=== PATIENT | female | born 1990 | race Hispanic/Latino ===

== ENCOUNTER 2017-11-07 07:36 | Inpatient (IN) | payer BC, MEDICAID ==
[~2017-11-07] VITALS: Ht 152.4 cm; Wt 97.5 kg
[2017-11-07] MEDS ORDERED: LACTATED RINGERS 1000ML 1,000 ML IV PRN (08:08)
[2017-11-07 08:09] LABS: APPEARANCE,URINE Clear (CLEAR); BILIRUBIN,URINE Negative (NEGATIVE); COLOR,URINE Dark Yellow (YELLOW); GLUCOSE, URINE (UA) Negative (NEGATIVE); KETONES,URINE Trace mg/dL (NEGATIVE); LEUKOCYTE ESTERASE ,URINE Negative (NEGATIVE); NITRATE,URINE Negative (NEGATIVE); OCCULT BLOOD,URINE Negative (NEGATIVE); PH,URINE 5.5 (5.0-8.0); PROTEIN,URINE Trace (NEGATIVE)
[2017-11-07] MEDS ORDERED: AMPICILLIN 2GM+NS 100ML 100 ML IV SCH (08:15)
[2017-11-07] MEDS ORDERED: AMPICILLIN 1GM+NS 50ML 50 ML IV SCH (08:15)
[2017-11-07 08:16] LABS: BACTERIA,URINE Rare /HPF (None Seen); RBC,URINE 0-1 /HPF (0-1); SQUAMOUS EPITHELIAL CELL,UR Rare /LPF (0-2); WBC,URINE 0-1 /HPF (0-1)
[2017-11-07 08:39] LABS: HEMATOCRIT 38.4 % (36-48); MEAN CORPUSCULAR HEMOGLOBIN 28.1 pg (27.0-33.0); MEAN CORPUSCULAR HGB CONC 33.8 g/dL (32.0-36.0); MEAN CORPUSCULAR VOLUME 83.2 fL (79-99); PLATELET COUNT (AUTO) 231 K/uL (130-400); RED BLOOD CELL COUNT(AUTO) 4.61 MIL/uL (4.00-5.50); RED CELL DISTRIBUTION WIDTH 14.3 % (11.0-15.5); WHITE BLOOD COUNT (AUTO) 12.8 K/uL (4.8-10.8)
[2017-11-07] MEDS ORDERED: LACTATED RINGERS 500 ML 500 ML IV PRN (08:45)
[2017-11-07] MEDS ORDERED: NALOXONE HCL 0.4 MG/1 ML ML IV PRN (08:45)
[2017-11-07] MEDS ORDERED: OXYTOCIN 10 USP UNITS/ML 20 UNIT in LACTATED RINGERS 1000ML 1,000 ML IV SCH (08:45)
[2017-11-07] MEDS ORDERED: PROMETHAZINE HCL 25 MG/ML 1ML AMPULE IM PRN (08:45)
[2017-11-07] MEDS ORDERED: MEPERIDINE-PF 50 MG/ML SYG IVP PRN (08:45)
[2017-11-07] MEDS ORDERED: EPHEDRINE SULFATE 50 MG/ML AMPULE IVP PRN (08:45)
[2017-11-07] MEDS ORDERED: PROMETHAZINE HCL 25 MG/ML 1ML AMPULE IM ONE (09:04)
[2017-11-07] MEDS ORDERED: MEPERIDINE-PF 50 MG/ML SYG ONE (09:04)
[2017-11-07] MEDS ORDERED: OXYTOCIN 10 USP UNITS/ML ONE ×2 (09:05→09:31)
[2017-11-07] MEDS ORDERED: OXYTOCIN-LR 20 UNITS/1000 ML 1,000 ML IV SCH (10:15)
[2017-11-07] MEDS ORDERED: MEASLES/MUMPS/RUBELLA VACCINE, LIVE 0.5 ML/VIAL SQ PRN (10:15)
[2017-11-07] MEDS ORDERED: ACETAMINOPHEN 325 MG TAB PO PRN (10:15)
[2017-11-07] MEDS ORDERED: BENZOCAINE/LANOLIN/ALOE VERA 60 ML AEROSOL TP PRN (10:15)
[2017-11-07] MEDS ORDERED: LANOLIN 30GM OINTMENT TP PRN (10:15)
[2017-11-07] MEDS ORDERED: ACETAMINOPHEN-CODEINE 300/30MG TAB PO PRN (10:15)
[2017-11-07] MEDS ORDERED: DIPH,PERTUSS(ACELL),TET VAC/PF 0.5 ML VIAL IM PRN (10:15)
[2017-11-07] MEDS ORDERED: WITCH HAZEL 1 PAD TP PRN (10:15)
[2017-11-07 11:44] VITALS: BP 129/86
[2017-11-07 15:24] VITALS: BP 128/79
[2017-11-07] MEDS ORDERED: PNV1TABL17 PO (15:34)
[2017-11-07 19:25] VITALS: BP 122/70
[2017-11-07] MEDS: IBUPROFEN 800 MG TAB PO PRN (21:28)
[2017-11-07] MEDS: DOCUSATE SODIUM 100 MG CAP PO SCH (21:28)
[2017-11-07 23:06] VITALS: BP 119/73
[2017-11-08] VITALS (7 sets, daily range): BP systolic 106–127; BP diastolic 59–74
[2017-11-08 06:46] LABS: HEMATOCRIT 33.4 % (36-48); MEAN CORPUSCULAR HEMOGLOBIN 29.1 pg (27.0-33.0); MEAN CORPUSCULAR HGB CONC 34.1 g/dL (32.0-36.0); MEAN CORPUSCULAR VOLUME 85.2 fL (79-99); PLATELET COUNT (AUTO) 205 K/uL (130-400); RED BLOOD CELL COUNT(AUTO) 3.91 MIL/uL (4.00-5.50); RED CELL DISTRIBUTION WIDTH 14.9 % (11.0-15.5); WHITE BLOOD COUNT (AUTO) 13.7 K/uL (4.8-10.8)
[2017-11-08] MEDS: DOCUSATE SODIUM 100 MG CAP PO SCH ×2 (09:01→21:10)
[2017-11-08 12:18] LABS: HEPATITIS Bs ANTIGEN SCREEN P Negative (Negative)
[2017-11-08] MEDS: IBUPROFEN 800 MG TAB PO PRN ×2 (12:20→23:28)
[2017-11-09 03:53] VITALS: BP 125/72
[2017-11-09 07:39] VITALS: BP 128/74
[2017-11-09] MEDS: DOCUSATE SODIUM 100 MG CAP PO SCH (09:16)
[2017-11-09] MEDS: IBUPROFEN 800 MG TAB PO PRN (09:17)
[2017-11-09] MEDS ORDERED: DOCU-116 PO (11:30)
[2017-11-09] MEDS ORDERED: IBUP-2077 PO (11:31)
[2017-11-09 11:39] VITALS: BP 118/76
[2017-11-09 15:56] VITALS: BP 127/80
== END 2017-11-09 16:05 | disposition home or self-care (01) | DRG 775 ==
LOC: LDH 07:36 → OBSVTOIN 07:36 → WSH 12:29
PROVIDERS: ADMIT Obstetrics & Gynecology; ATTEND Obstetrics & Gynecology
PROC: 10E0XZZ Delivery of Products of Conception, External Approach (ICD-10-PCS; principal; 2017-11-07)
PROC: 10907ZC Drainage of Amniotic Fluid, Therapeutic from Products of Conception, Via Natural or Artificial Opening (ICD-10-PCS; 2017-11-07)
PROC: 3E0234Z Introduction of Serum, Toxoid and Vaccine into Muscle, Percutaneous Approach (ICD-10-PCS; 2017-11-07)
PROC: 3E0134Z Introduction of Serum, Toxoid and Vaccine into Subcutaneous Tissue, Percutaneous Approach (ICD-10-PCS; 2017-11-07)
DX: O99.824 Streptococcus B carrier state complicating childbirth (principal); Z23 Encounter for immunization; Z37.0 Single live birth; Z3A.38 38 weeks gestation of pregnancy
CPT/HCPCS: 36415; 81001; 85027; 86592; 86850; 86900; 86901; 87340; A4351; J0290; J2175; J2550; J2590; J7120

== ENCOUNTER → 2018-07-11 | Outpatient (CLI) | payer BC ==
[~2018-07-11] MED LIST: DOCU-116 PO; IBUP-2077 PO; IOHEXOL-350 50ML VIAL IV ONE; PNV1TABL17 PO
== END | disposition home or self-care (01) ==
LOC: RAH 14:21
PROVIDERS: ATTEND Nurse Practitioner Family
DX: R22.1 Localized swelling, mass and lump, neck (principal)
CPT/HCPCS: 70492; Q9967

== ENCOUNTER 2025-03-05 08:15 | Emergency (ER) | payer BC, MEDICAID ==
[~2025-03-05] VITALS: Ht 152.4 cm; Wt 95.3 kg
[~2025-03-05 08:15] MED LIST changes: -IOHEXOL-350 50ML VIAL IV ONE
[2025-03-05 08:16] VITALS: TEMP 98.3
--- NOTE | 2025-03-05 08:30 | ERN ---
General Chief Complaint: Nausea,Vomiting,Diarrhea Stated Complaint: NAUSEA AND VOMITING Time Seen by MD: 08:16 Source: patient History of Present Illness Initial Comments Patient is a 35-year-old female coming in to be evaluated for dizziness and facial pain. She states that these symptoms began on Sunday she states that she had some facial discomfort which progressed and nauseousness and vomiting. She states that she has been having these symptoms on and off since Sunday no fever no chills. Allergies: Coded Allergies: No Known Drug Allergies (Unverified Allergy, Unknown, 11/07/17) Home Meds Reported Medications Ibuprofen (Ibuprofen 800 mg Tab) 800 Mg Tab, 800 MG PO Q8H PRN for PAIN, #60 TAB 0 Refills 11/09/17 Docusate Sodium (Colace) 100 Mg Capsule, 100 MG PO BID PRN for CONSTIPATION, #60 CAP 0 Refills 11/09/17 Pnv Cmb#21/Iron/Folic Acid ( Complete [place]) 1 Each Tablet, 1 EACH PO DAILY, TAB 11/07/17 Past Medical History Past Medical History: Other Medical History Other: THYROID PROBLEMS Past Surgical History: Cholecystectomy ROS Dictation CONSTITUTIONAL: No chills, no fever, no weakness, no diaphoresis, no malaise. HEAD/FACE: No signs of trauma. EENT: No eye pain, no blurred vision, no tearing, no double vision, no ear pain, no ear discharge, no nose pain, no nasal congestion, no throat pain, no throat swelling, no mouth pain. RESPIRATORY: No cough, no orthopnea, no SOB, no stridor, no wheezing. CARDIOVASCULAR: No chest pain, no edema, no palpitations, no syncope. GASTROINTESTINAL/ABDOMINAL: No abdominal pain, no constipation, no diarrhea, no nausea, no vomiting. GENITOURINARY: No abnormal discharge, no dysuria, no frequent urination, no hematuria. No complaints of pain in the genitals. MUSCULOSKELETAL: No back pain, no gout, no joint pain, no joint swelling, no muscle pain, no muscle stiffness, no neck pain. INTEGUMENTARY: No change in color, no change in hair/nails, no dryness, no lesion, no lumps, no rash. NEUROLOGICAL/PSYCH: No anxiety, not depressed, no emotional problem, no headache, no numbness, no pre-existing deficit, no history of seizures, no tremors, no weakness. HEMATOLOGIC/LYMPHATIC: Not anemic, no history of blood clots, no apparent bleeding, no bruising, glands not swollen. All Systems Negative, Except as Noted. Physical Exam Physical Exam Dictation VITAL SIGNS: Reviewed. GENERAL APPEARANCE: Alert, oriented x3, no acute distress, obese. HEAD AND FACE: Non-traumatic. Facial tenderness on palpation, frontal sinus pressure EYES: PERRL, pink conjunctivas, eyelid no trauma, anterior chamber clear. EARS: Pinnas intact and no signs of trauma or erythema. Ear canals clear and no discharge. TMs no erythema. NOSE: No discharge, no bleeding. Nasal turbinate swelling bilateral OROPHARYNX: Mouth normal, teeth no caries, tongue pink. Pharynx clear, no erythema. Tonsils no exudates, no abscesses noted. Mucous membrane moist. NECK: Supple, non-tender, no thyromegaly, no masses, no JVD, no bruits. BREAST: Deferred. CHEST: No tenderness, no crepitus, no paradoxical movement, no retractions. LUNGS: Clear, well-ventilated, symmetric, no rales, no wheezing, no rhonchi, no stridor, good breath sounds bilaterally. HEART: Regular rate, regular rhythm, no murmur, no gallops. VASCULAR: No peripheral edema. ABDOMEN: Soft, positive bowel sounds, nondistended, no guarding, nontender, no rebound, no masses no hepatomegaly, no splenomegaly, no Cruz's sign, no hernias. RECTAL: Deferred. GENITAL: Deferred. NEUROLOGICAL: Normal speech, gross motor function intact, gross sensory function intact. MUSCULOSKELETAL: Neck nontender, full range of motion, back nontender, full range of motion. EXTREMITIES: Nontender, full range of motion. SKIN: Color pink, dry, no turgor, no rash, no lacerations, no abrasions, no contusions. LYMPHATICS: Deferred. Results Laboratory and Microbiology Lab and Micro Result Laboratory Tests Test 03/05/25 08:26 White Blood Count 8.7 K/uL (4.8-10.8) Red Blood Count 5.01 MIL/uL (4.00-5.50) Hemoglobin 14.7 g/dL (12.0-16.0) Hematocrit 44.1 % (36-48) Mean Corpuscular Volume 88.0 fL (79-99) Mean Corpuscular Hemoglobin 29.3 pg (27.0-33.0) Mean Corpuscular Hemoglobin Concent 33.3 g/dL (32.0-36.0) Red Cell Distribution Width 12.1 % (11.0-15.5) Platelet Count 300 K/uL (130-400) Mean Platelet Volume 8.7 fL (7.5-10.5) Immature Granulocyte % (Auto) 0.6 % (0-1) Neutrophils (%) (Auto) 78.6 % (40.0-77.0) H Lymphocytes (%) (Auto) 15.8 % (21.0-51.0) L Monocytes (%) (Auto) 4.1 % (3.0-13.0) Eosinophils (%) (Auto) 0.6 % (0.0-8.0) Basophils (%) (Auto) 0.3 % (0.0-5.0) Neutrophils # (Auto) 6.9 K/uL (1.8-7.7) Lymphocytes # (Auto) 1.4 K/uL (1.0-4.8) Monocytes # (Auto) 0.4 K/uL (0.1-1.0) Eosinophils # (Auto) 0.05 K/uL (0.00-0.70) Basophils # (Auto) 0.03 K/uL (0.00-0.20) Absolute Immature Granulocyte (auto 0.05 K/uL (0-1) Nucleated Red Blood Cells 0.0 % (0.0-0.19) Urine Color YELLOW (YELLOW) Urine Appearance CLEAR (CLEAR) Urine pH 6.0 (5.0-8.0) Urine Specific [place] 1.030 (1.001-1.031) Urine Protein TRACE mg/dL (NEGATIVE) H Urine Glucose (UA) NEGATIVE mg/dL (NEGATIVE) Urine Ketones NEGATIVE mg/dL (NEGATIVE) Urine Occult Blood NEGATIVE (NEGATIVE) Urine Nitrate NEGATIVE (NEGATIVE) Urine Bilirubin NEGATIVE mg/dL (NEGATIVE) Urine Urobilinogen 0.2 mg/dL (0.2-1.0) Urine Leukocyte Esterase NEGATIVE [place]/uL Urine RBC 0-1 /HPF (0-1) Urine WBC 0-1 /HPF (0-1) Urine Squamous Epithelial Cells Rare /HPF (0-2) Urine Bacteria None Seen /HPF (None Seen) Sodium Level 143 mmol/L (136-145) Potassium Level 3.7 mmol/L (3.5-5.1) Chloride Level 104 mmol/L (101-111) Carbon Dioxide Level 29 mmol/L (21-32) Blood Urea Nitrogen 10 mg/dL (7-18) Creatinine 0.9 mg/dL (0.5-1.0) Glomerular Filtration Rate Calc 84 mL/min (>90) Random Glucose 126 mg/dL (70-105) H Total Calcium 9.3 mg/dL (8.5-10.1) Total Bilirubin 0.6 mg/dL (0.2-1.0) Aspartate Amino Transf (AST/SGOT) 63 U/L (10-37) H Alanine Aminotransferase (ALT/SGPT) 132 U/L (12-78) H Alkaline Phosphatase 97 U/L (50-136) Total Creatine Kinase 62 U/L (21-232) Troponin I High Sensitivity 4 ng/L (4-50) Total Protein 8.2 g/dL (6.0-8.3) Albumin 3.9 g/dL (3.5-5.0) Lipase 28 U/L (16-77) Labs Reviewed?: Yes EKG/XRAY/US/CT/MRI EKG Comment 03/05/2025 time 8:29 a.m. Ventricular rate 62 Sinus rhythm [place] [address] wave elevation or depression MDM MDM: Differential diagnosis: Frontal sinusitis, dehydration, vertigo, history of hypothyroidism Rationale: Tests considered and ordered secondary to shared decision making include: Previous outside records reviewed: Old ER visits. Risk of complication and/or morbidity or mortality of patient management: None Medications-Per medication reconciliation Need for hospitalization: Patient does not meet criteria for hospitalization. Patient is a 35-year-old female coming in to be evaluated for dizziness. Along with the dizziness patient has been complaining of facial tenderness on palpation nasal congestion as well. On physical exam bilateral nasal turbinate swelling with some discharge and frontal sinus pressure on palpation. Patient was hydrated with IV fluids states he feels much better. Based on the physical findings patient will be discharged with frontal sinusitis as well as dehydration. Patient does has a history of hypothyroidism I did advised her appropriate follow up with PCP for ongoing evaluation and monitoring of thyroid levels. ED Course Orders Procedure Category Date Status Time Cbc With Differential LAB 03/05/25 Complete 08:17 Comprehensive LAB 03/05/25 Complete Metabolic Panel 08:17 Troponin I High LAB 03/05/25 Complete Sensitivity 08:17 Urinalysis Profile LAB 03/05/25 Complete 08:17 12 Lead Ekg Tracing- EKG 03/05/25 Complete Technical 08:17 Lactated Ringers PHA 03/05/25 Complete 1000ml (Lactated 08:30 Ondansetron 4mg Inj PHA 03/05/25 Complete (Zofran 4mg Inj) 08:30 Pantoprazole 40mg Inj PHA 03/05/25 Complete (Protonix 40mg Inj 08:30 Creatine Kinase, Total LAB 03/05/25 Complete 08:17 Lipase LAB 03/05/25 Complete 08:17 Drug Screen Urine LAB 03/05/25 Logged 08:52 Current Medications Medications (Trade) Dose Ordered Sig/Jaimie Route PRN Reason Start Time Stop Time Status Last Admin Dose Admin Lactated Ringer's 1,000 ml @ 0 mls/hr ONCE ONCE IV 03/05/25 08:30 03/05/25 08:31 DC 03/05/25 08:34 Ondansetron HCl (zoFRAN 4MG INJ) 4 mg ONCE ONCE IVP 03/05/25 08:30 03/05/25 08:31 DC 03/05/25 08:34 Pantoprazole Sodium (PROTonix 40MG INJ) 40 mg ONCE ONCE IVP 03/05/25 08:30 03/05/25 08:31 DC 03/05/25 08:33 Vital Signs Date Time Temp Pulse Resp B/P (MAP) Pulse Ox O2 Delivery O2 Flow Rate FiO2 03/05/25 08:16 98.2 75 16 161/97 97 Room Air 0 DX & DISP Disposition: Discharge Departure Impression: Primary Impression: Frontal sinusitis Additional Impressions: Dehydration, History of hypothyroidism Condition: Stable Scripts Loratadine (Loratadine) 10 Mg Tablet 1 TAB PO DAILY for allergy symptoms for 30 Days, #30 TAB 0 Refills Prov: VALERIE MENDEZ MD 03/05/25 Fluticasone Propionate (Flonase Nasal [place]) 50 Mcg/Actuation [place] 2 SPRAY NS DAILY, #16 GM 0 Refills Prov: VALERIE MENDEZ MD 03/05/25 Amoxicillin/Potassium Clav (Amox Tr-K Clv 875-125 mg Tab) 875 Mg-125 Mg Tablet 1 TAB PO BID for 10 Days, #20 TAB 0 Refills Prov: VALERIE MENDEZ MD 03/05/25 Additional Instructions: FOLLOW-UP WITH PRIMARY CARE PROVIDER IN 1 TO 2 DAYS. TAKE MEDICATIONS DIRECTED HERE IN THE EMERGENCY ROOM. OKAY TO CONTINUE HOME MEDICATIONS UNLESS OTHERWISE DISCUSSED DURING YOUR VISIT IN THE EMERGENCY ROOM TODAY. RETURN TO YOUR NEAREST EMERGENCY ROOM IF SYMPTOMS WORSEN OR IF THERE IS NO IMPROVEMENT. CALL 911 IF YOU NEED IMMEDIATE ASSISTANCE. TAKE TYLENOL [id number] NEEDED AND IF NO CONTRAINDICATIONS ARE PRESENT. INCREASE ORAL HYDRATION. A WOUND CULTURE OR URINE CULTURE WAS ORDERED HERE IN THE EMERGENCY ROOM DEPARTMENT PLEASE FOLLOW-UP WITH PRIMARY CARE PROVIDER AND ADVISE THEM TO GET REPEAT PORTS FROM OUR FACILITY. IF YOU HAD ANY MAGED WRAP/SPLINTS THAT WERE APPLIED HERE, PLEASE DO NOT REMOVE THEM UNTIL YOU SEE YOUR PRIMARY CARE OR SPECIALTY. Referrals: Referrals: SADE STRATTON (PCP) JAIME MORA MD, JAMES T MD Time of Disposition: 10:18 VALERIE MENDEZ MD March 05, 2025 08:30
[2025-03-05] MEDS: PANTOPrazole 40 MG/VIAL IVP ONE (08:33)
[2025-03-05] MEDS: ondanSETRON 4MG INJ IVP ONE (08:34)
[2025-03-05] MEDS: LACTATED RINGERS 1000ML 1,000 ML IV ONE (08:34)
[2025-03-05 08:40] LABS: BASOPHILS # (AUTO) 0.03 K/uL (0.00-0.20); BASOPHILS % (AUTO) 0.3 % (0.0-5.0); EOSINOPHILS # (AUTO) 0.05 K/uL (0.00-0.70); EOSINOPHILS % (AUTO) 0.6 % (0.0-8.0); HEMATOCRIT 44.1 % (36-48); IMMATURE GRANULOCYTE ABSOLUTE 0.05 K/uL (0-1); LYMPHOCYTES # (AUTO) 1.4 K/uL (1.0-4.8); LYMPHOCYTES % (AUTO) 15.8 % (21.0-51.0); MEAN CORPUSCULAR HEMOGLOBIN 29.3 pg (27.0-33.0); MEAN CORPUSCULAR HGB CONC 33.3 g/dL (32.0-36.0); MONOCYTES # (AUTO) 0.4 K/uL (0.1-1.0); MONOCYTES % (AUTO) 4.1 % (3.0-13.0); NEUTROPHILS # (AUTO) 6.9 K/uL (1.8-7.7); NEUTROPHILS % (AUTO) 78.6 % (40.0-77.0); PLATELET COUNT (AUTO) 300 K/uL (130-400); RED BLOOD CELL COUNT(AUTO) 5.01 MIL/uL (4.00-5.50); RED CELL DISTRIBUTION WIDTH 12.1 % (11.0-15.5); WHITE BLOOD COUNT (AUTO) 8.7 K/uL (4.8-10.8)
[2025-03-05 08:42] LABS: ADD UA MICROSCOPIC YES; APPEARANCE,URINE CLEAR (CLEAR); BILIRUBIN,URINE NEGATIVE (NEGATIVE); COLOR,URINE YELLOW (YELLOW); GLUCOSE, URINE (UA) NEGATIVE (NEGATIVE); KETONES,URINE NEGATIVE (NEGATIVE); LEUKOCYTE ESTERASE ,URINE NEGATIVE Leu/uL (NEGATIVE); NITRATE,URINE NEGATIVE (NEGATIVE); OCCULT BLOOD,URINE NEGATIVE (NEGATIVE); PROTEIN,URINE TRACE mg/dL (NEGATIVE); UROBILINOGEN,URINE 0.2 mg/dL (0.2-1.0)
[2025-03-05 08:45] LABS: BACTERIA,URINE None Seen /HPF (None Seen); RBC,URINE 0-1 /HPF (0-1); SQUAMOUS EPITHELIAL CELL,UR Rare /HPF (0-2); WBC,URINE 0-1 /HPF (0-1)
[2025-03-05 08:55] LABS: ALBUMIN 3.9 g/dL (3.5-5.0); BILIRUBIN,TOTAL 0.6 mg/dL (0.2-1.0); CREATININE 0.9 mg/dL (0.5-1.0); POTASSIUM 3.7 mmol/L (3.5-5.1); TOTAL PROTEIN, SERUM 8.2 g/dL (6.0-8.3)
--- NOTE | 2025-03-05 09:43 | EKG ---
[facility] Test Date: 2025-03-05 Test Time: 08:29:21 Pat Name: JEFF HU Department: ED Room: Gender: F [employer]: 9920 : 1990 Requested By: VALERIE MENDEZ Order Number: [id number] Reading MD: Benson Novak Measurements Intervals [place] Rate: 62 P: 44 IN: 158 QRS: 45 QRSD: 82 T: 33 QT: 401 QTc: 408 Interpretive Statements Sinus rhythm No previous ECG available for comparison Electronically Signed On 03-05-2025 16:56:31 CDT by Benson Novak Please click the below link to view image of tracing.
[2025-03-05] MEDS ORDERED: AMOX1TAB16 PO (10:19)
[2025-03-05] MEDS ORDERED: FLUT16H NS (10:19)
[2025-03-05] MEDS ORDERED: LORA10TA7 PO (10:19)
[2025-03-05 10:37] VITALS: BP 121/84; PULSE 75; RESP 20; O2SAT 99
[2025-03-05 11:03] LABS: AMPHET/METH SCREEN,URINE NEGATIVE (NEGATIVE); BARBITURATE SCREEN, URINE NEGATIVE (NEGATIVE); BENZODIAZEPINES SCREEN,URINE NEGATIVE (NEGATIVE); CANNABINOID SCREEN,URINE POSITIVE (NEGATIVE); COCAINE SCREEN,URINE NEGATIVE (NEGATIVE); OPIATE SCREEN,URINE NEGATIVE (NEGATIVE); PHENCYCLIDINE SCREEN,URINE NEGATIVE (NEGATIVE)
== END 2025-03-05 10:35 | disposition home or self-care (01) ==
LOC: EDH 08:15
DX: J32.1 Chronic frontal sinusitis (principal); E86.0 Dehydration; E03.9 Hypothyroidism, unspecified; Z79.899 Other long term (current) drug therapy; Z90.49 Acquired absence of other specified parts of digestive tract
CPT/HCPCS: 99284; 96374; 96375; 82550; 84484; 80053; 80305; 83690; 85025; 36415; 93005; 81001; J7120; J2405; J2470